=== PATIENT | female | born 1980 | race Caucasian/White ===

== ENCOUNTER 2023-04-26 11:49 | Emergency (ER) | payer OTHER, SELFPAY ==
[2023-04-26 11:51] VITALS: BP 109/73
[2023-04-26 12:36] VITALS: BMI 22.5
[2023-04-26 12:50] VITALS: BP 98/67
[2023-04-26 12:52] VITALS: BP 98/67
[2023-04-26 13:00] VITALS: BP 97/68
[2023-04-26 13:00] LABS: Hematocrit 32.7 % (37.0-47.0); Hemoglobin 10.7 g/dL (12.0-16.0); Mean Corp Hgb Conc. 32.7 g/dL (33.0-37.0); Mean Corpuscular Hgb 26.8 pg (27.0-31.0); Mean Corpuscular Volume 81.8 fL (81.0-99.0); Mean Platelet Volume 11.4 fL (7.4-10.4); Platelet Count 231 10^3/uL (130-400); Red Cell Dist. Width 14.4 % (11.5-14.5); White Blood Cell Count 4.8 10^3/uL (4.8-10.8)
[2023-04-26 13:15] LABS: COVID-19 Antigen Negative (Negative)
[2023-04-26 13:19] LABS: ALT (SGPT) 20 U/L (0-35); AST (SGOT) 25 U/L (14-36); Albumin 3.9 g/dl (3.5-5.0); Alkaline Phosphatase 35 U/L (38-126); Blood Urea Nitrogen 16 mg/dl (7-17); Calcium 8.6 mg/dl (8.4-10.2); Carbon Dioxide 29 mmol/L (22-30); Chloride 100 mmol/L (98-107); Estimated Creatinine Clearance 116 ml/min; Glucose 92 mg/dl (70-99); Potassium 3.8 mmol/L (3.5-5.1); Sodium 137 mmol/L (135-145); Total Bilirubin 0.6 mg/dl (0.2-1.3); Total Protein 6.8 g/dl (6.3-8.2); eGFR > 60.00
--- NOTE | 2023-04-26 13:21 | ED.GENMED ---
History of Present Illness
General
Chief Complaint: Chest Pain
Source: patient
Exam Limitations: none
Time Seen by Provider: 04/26/23 12:36
Nursing documentation reviewed up to this point in time: agreed with
Travel History
Have you had any contact with someone who has COVID-19?: No
Do you have any symptoms of coronavirus? Fever > 100 degrees, chills, cough, shortness of breath, sore throat, loss of taste or smell, muscle aches, or headache?: Yes
Symptoms:: sore throat
History of Present Illness
History of Present Illness:
42-year-old female with past medical history as document presents to the emergency room for evaluation of throat pain and multiple other complaints. Patient reports that she started feeling unwell 4 days ago and symptoms have been constant since
that time. She reports initially she started with 'achiness' in her throat and has had essentially a sore throat over the weekend. She says that she has had mild congestion as well as mild cough. She says that last night she started to notice
some slight tightness in her chest. This morning she felt the tightness was a bit worse but these constellation of symptoms she decided to go to her primary doctor to be assessed. She says that she was referred to the emergency room to be further
assessed. She has not had any fever but has had some subjective chills. She denies any shortness of breath. She denies any nausea, vomiting, diarrhea. She denies any other complaints. Denies any known cardiac history. She does have a distant
history of polysubstance use but says she has been sober for 7 years.
Past History
Past History
ED Past Medical History: Cancer (Thyroid) and Other (Hepatitis C)
ED Past Surgical History: Other (Thyroidectomy)
Social History
Tobacco: Smoker
Review of Systems
Review of Systems
All Other Systems: ROS reviewed and negative except as documented in HPI and ROS
Constitutional: Reports fatigue and chills; Denies fever
EENT: Reports sore throat and other (Congestion)
Respiratory: Reports cough; Denies trouble breathing
Cardiac: Reports chest pain; Denies diaphoresis or palpitations
ABD/GI: Denies abdominal pain, nausea, vomiting or diarrhea
: Denies flank pain
Musculoskeletal: Denies neck pain or back pain
Neurological: Denies headache, weakness or numbness
Phy Exam
Physical Exam
Physical Exam:
General: Awake, alert, oriented x3; no acute distress
Head: Normocephalic, atraumatic
Eyes: Conjunctiva normal, EOMI
Throat: Airway intact, significant pharyngeal erythema, no tonsillar enlargement or exudate; no trismus or drooling
Neck: Trachea midline, supple without meningismus; she has bilateral cervical adenopathy
Lungs: Clear to auscultation bilaterally, no wheezing, rales, rhonchi
Heart: Regular rate and rhythm, no murmurs, gallops, or rubs
Abd: Soft, non distended, nontender
Neuro: Cranial nerves grossly intact, speech fluid
Skin: no rash
Extremities: No edema in extremities, equal pulses in all extremities
Scores
Heart Failure Risk
Heart Failure Risk Score: Not Applicable
Heart Score for Chest Pain Patients
STEMI patient?: No
History: Slightly or Non-Suspicious
ECG: Normal
Age: </= 45 years
Risk Factors: 1 or 2 Risk Factors
Troponin: </= Normal Limit
Heart Score for Chest Pain Patients: 1
Heart Score Risk: 2.5% MACE over next 6 weeks
Withdrawal Assessment of Alcohol
Withdrawal Assessment Completed?: Not applicable
Course
Orders/Labs/Results
Orders:
Orders
04/26/23 11:55
Electrocardiogram (*1) Urgent
Reason for Study: Chest Pain
EKG- Treatment ONCE
04/26/23 12:40
CR Chest - 2 Views Urgent
Comment:
Reason For Exam: chest pain
04/26/23 12:45
CMP [Comprehensive Metabolic Panel] Urgent
COVID-19 Antigen Urgent
Source: Nasal Swab
Complete Blood Count/No Diff Urgent
Monotest Urgent
Troponin I Urgent
Influenza A+B Rapid Molecular Urgent
BARBIE Source: Nasal Swab
Specimen Description:
04/26/23 13:09
Ketorolac [Toradol] 15 mg IV NOW STA
04/26/23 13:26
Rapid Strep Group A Urgent
BARBIE Source: Throat/Pharynx
Specimen Description:
Date Specimen was Collected: 04/26/23
Time Specimen was Collected: 13:59
Abnormal Lab Results
04/26/23
12:45
RBC 4.00 L 10^6/uL
(4.20-5.40)
Hgb 10.7 L g/dL
(12.0-16.0)
Hct 32.7 L %
(37.0-47.0)
MCH 26.8 L pg
(27.0-31.0)
MCHC 32.7 L g/dL
(33.0-37.0)
MPV 11.4 H fL
(7.4-10.4)
Alkaline Phosphatase 35 L U/L
(38-126)
Monoscreen Positive A
(Negative)
04/26/23 12:45
04/26/23 12:45
Vital Signs
Initial and Last Documented VS:
Initial Vital Signs
Temp Pulse Resp BP Pulse Ox
36.6 C 74 16 109/73 100
04/26/23 11:51 04/26/23 11:51 04/26/23 11:51 04/26/23 11:51 04/26/23 11:51
Last Documented Vital Signs
Temp Pulse Resp BP Pulse Ox
36.6 C 56 13 103/69 99
04/26/23 11:51 04/26/23 14:06 04/26/23 14:06 04/26/23 14:06 04/26/23 14:06
MDM/Problems Addressed
Differential Diagnosis Includes:
Viral pharyngitis, strep pharyngitis, mononucleosis, other viral syndrome; pneumonia/bronchitis, pericarditis, myocarditis a consideration given cough and chest tightness as well
MDM/Problems Addressed:
42-year-old female with history as above presents for evaluation of sore throat, cough, congestion and chest tightness over the past 4 days. Vital signs here within normal limits. Physical exam as above. Plan to place an IV will check basic labs
including a CBC and CMP. Will check a chest x-ray, viral swabs. Check an EKG and troponin in an abundance of caution although clinical history most consistent with viral syndrome. Will treat with Toradol. Monitor closely reassess after the above.
Labs reviewed: CBC shows stable anemia, CMP no clinically significant abnormalities. Troponin negative x 1 and with constant symptoms greater than 24 hours this is sufficient to rule out acute coronary syndrome. Chest x-ray shows no pneumonia.
Patient's viral swabs were negative but Monospot positive which I think accounts for her symptoms. Will treat with some dexamethasone in addition to Toradol given earlier. I think she stable for discharge advised regarding follow-up plan with PCP,
return precautions. All questions answered.
*Radiology
Radiology exam reviewed: radiology read reviewed
*Pulse Oximetry
Patient hypoxic: no
*EKG
Interpreted by ED Provider?: Yes
Heart Rate: 55
Rate: bradycardiac
Rhythm: sinus
[place]: normal axis
Interval: normal interval
QRS Pattern: normal QRS
Ischemia: no ischemia
*Critical Care Note
Total Time (30-74mins, 75-104mins- exclusive of procedures): Not Applicable
Data Reviewed
Source: patient
ED Attending Note
-
Portions of this chart may have been created with voice recognition software.� Occasional wrong word or��sound alike� substitutions may have occurred due to the inherent limitations of voice recognition software.
Discharge Plan
Departure
Patient Disposition: Home (Routine Discharge)
Date of Disposition: 04/26/23
Time of Disposition: 14:10
Patient with high blood pressure during this ER visit?: No
Discharge Problem:
Mononucleosis
Instructions: Mononucleosis (DC)
Prescriptions:
No Action
ibuprofen 600 MG tablet
600 mg PO Q4HPRN PRN (Reason: moderate pain/cramps) Qty: 0 0RF
multivitamin 1 EACH tablet
1 ea PO DAILY
levothyroxine 112 MCG tablet
112 mcg PO DAILY
Patient Comments:
wednesday and wednesday patient takes 1.5 pills
escitalopram oxalate 10 MG tablet
10 mg PO DAILY
guaifenesin [Mucus Relief ER] 600 MG tablet extended release 12hr
600 mg PO Q12H
ibuprofen 600 mg tablet
600 mg PO Q8H PRN (Reason: Pain) Qty: 10 0RF
Referrals:
Juan Oneal DO [Family Provider] - Call in 1-3 days for appt
Activity Restrictions/Additional Instructions:
Thank you for visiting the Emergency Department at [facility].
1. Please schedule a follow up appointment as directed. Call first thing tomorrow morning to make an appointment.
2. If indicated, please take your medications as instructed and indicated on discharge paperwork.
3. If any of your symptoms do not improve, or persist, or become more severe within 6-12 hours, please return to the emergency department for further care.
4. Please return to the emergency department if you develop a headache, neck pain/stiffness, fever greater than 100.4F, chest pain, shortness of breath, persistent nausea, vomiting, slurred speech, difficulty walking, numbness/tingling, weakness,
signs of infection or any other symptoms that are worrisome to you.
Please call [phone] if you have any questions.
Interventions
Interventions:
*General Assessment Last Done: 04/26/23 11:51
*ED COVID-19 Vaccine History Last Done: 04/26/23 11:51
[2023-04-26 13:30] LABS: Troponin I < 0.012 ng/ml
[2023-04-26 13:39] LABS: Monotest Positive (Negative)
[2023-04-26 14:05] VITALS: BP 103/69
[2023-04-26 14:06] VITALS: BP 103/69
[2023-04-26] MEDS: TORADOL 15 MG IV (14:07)
[2023-04-26] MEDS: DECADRON 10 MG IV (14:39)
== END 2023-04-26 14:54 | disposition home or self-care (01) ==
LOC: EMR 11:49
PROVIDERS: Emergency Medicine; EMERGENCY PHYSICIAN Emergency Medicine; FAMILY PHYSICIAN Family Medicine
DX: B27.90 Infectious mononucleosis, unspecified without complication (principal); F17.200 Nicotine dependence, unspecified, uncomplicated; Z11.52 Encounter for screening for COVID-19
CPT/HCPCS: 99285; 96374; 96375; 71046; 80053; 84484; 85027; 86308; 87070; 87147; 87502; 87811; 87880; 93005

== ENCOUNTER → 2023-06-04 10:52 | Outpatient (REF) | payer OTHER, SELFPAY | LOC: RAD 10:52 | PROVIDERS: ATTENDING PHYSICIAN Family Medicine | DX: R05.1 Acute cough (principal) | CPT/HCPCS: 71046 ==